=== PATIENT | female | born 1980 | race Caucasian/White ===

== ENCOUNTER 2016-09-28 13:26 | Emergency (ER) | payer OTHER ==
[~2016-09-28] VITALS: Ht 154.9 cm; Wt 54.4 kg
[2016-09-28 13:26] VITALS: BP 133/89; PULSE 78; RESP 22; TEMP 97.6; O2SAT 100
--- NOTE | 2016-09-28 13:26 | NUR ---
Patient triaged and placed in waiting room. VSS and patient appears in no acute distress at this time. Accompanied by SELF, awaiting available bed, and MD notified of need for MSE.
--- NOTE | 2016-09-28 13:55 | NUR ---
pt. placed in room 8 report received from bradford quiñonez
--- NOTE | 2016-09-28 14:00 | NUR ---
Dr. page at bedside examining the pt.
--- NOTE | 2016-09-28 14:00 | NUR ---
pt. to ER [id number] states that she does not know why she is here, "i guess vaginal bleeding" as per pt. she has abdominal pain at the moment 11/25, discomfort due to abdominal pain and vaginal bleeding. states that she might or might not be , denies SOB, denies N/V, clear speech, follows commands
[2016-09-28 14:11] LABS: BASOPHILS # (AUTO) 0.1 K/uL (0.0-0.2); BASOPHILS % (AUTO) 0.6 % (0.0-2.0); EOSINOPHILS # (AUTO) 0.1 K/uL (0.0-0.4); EOSINOPHILS % (AUTO) 0.8 % (0.0-4.0); HEMATOCRIT 40.3 % (36-48); HEMOGLOBIN 13.7 g/dL (12.0-16.0); LYMPHOCYTES # (AUTO) 3.2 K/uL (1.0-5.5); LYMPHOCYTES % (AUTO) 18.2 % (20.5-51.5); MEAN CORPUSCULAR HEMOGLOBIN 30 pg (27-31); MEAN CORPUSCULAR HGB CONC 34 % (32-36); MEAN CORPUSCULAR VOLUME 87 fL (79.0-98.0); MONOCYTES # (AUTO) 0.6 K/uL (0.0-1.0); MONOCYTES % (AUTO) 3.3 % (1.7-9.3); NEUTROPHILS # (AUTO) 13.8 K/uL (1.8-7.7); NEUTROPHILS % (AUTO) 77.1 % (40.0-70.0); PLATELET COUNT (AUTO) 343 K/uL (130-430); RED BLOOD CELL COUNT(AUTO) 4.63 MIL/uL (4.2-6.2); RED CELL DISTRIBUTION WIDTH 12.6 % (9.0-15.0); WHITE BLOOD COUNT (AUTO) 17.8 K/uL (4.8-10.8)
[2016-09-28 14:22] LABS: CALCIUM 9.1 mg/dL (8.4-11.0); CREATININE 0.71 mg/dL (0.55-1.30); POTASSIUM 3.2 mmol/L (3.5-5.1)
[2016-09-28 14:24] LABS: PROTHROMBIN TIME 10.4 SECS (9.5-12.5)
--- NOTE | 2016-09-28 14:45 | NUR ---
pt. to ultrasound via wheelchair
[2016-09-28 14:48] LABS: ALBUMIN 4.3 g/dL (3.4-4.8); TOTAL BILIRUBIN 0.7 mg/dL (0.0-1.0); TOTAL PROTEIN, SERUM 8.1 g/dL (6.4-8.3)
--- NOTE | 2016-09-28 15:06 | NUR ---
pt. back from ultrasound via wheelchair
--- NOTE | 2016-09-28 16:00 | NUR ---
pt. eloped without signing the AMA, warned of possibilities of leaving the hospital AMA, pt. appeared agitated yelling refusing to sign AMA form, Makenna ROSS witnessed.
[2016-09-28 16:07] LABS: BILIRUBIN,URINE NEGATIVE (NEGATIVE); BLOOD, URINE 3+ (NEGATIVE); CLARITY/URINE CLEAR (CLEAR); COLOR,URINE YELLOW (YELLOW); GLUCOSE,URINE NEGATIVE (NEGATIVE); KETONES,URINE 2+ (NEGATIVE); LEUKOCYTE ESTERASE ,URINE NEGATIVE (NEGATIVE); NITRITE, URINE NEGATIVE (NEGATIVE); PH,URINE 5.5 (5.0-8.0); PROTEIN URINE NEGATIVE (NEGATIVE)
[2016-09-28 16:15] LABS: BACTERIA,URINE FEW /HPF (None Seen); MUCUS,URINE None Seen /LPF (None Seen); RBC,URINE NONE SEEN /HPF (0-3); WBC,URINE 0-3 /HPF (0-3)
[2016-09-28 16:17] LABS: BARBITURATE, URINE NEGATIVE (NEG <=200); BENZODIAZEPINE, URINE POSITIVE (NEG <=150); CANNABINOID, URINE POSITIVE (NEG <=50); COCAINE, URINE NEGATIVE (NEG <=150); METHAMPHETAMINES SCREEN,URINE POSITIVE (NEG <=500); OPIATE, URINE NEGATIVE (NEG <=100); PHENCYCLIDINE SCREEN,URINE NEGATIVE (NEG <=25); UR TRICYCLIC ANTIDEPRESSANTS NEGATIVE (NEG <=300); URINE AMPHETAMINE POSITIVE (NEG <=500); URINE METHADONE NEGATIVE (NEG <=200); URINE OXYCODONE SCREEN NEGATIVE (NEG <=100); URINE PROPOXYPHENE SCREEN NEGATIVE (NEG <=300)
== END 2016-09-28 16:17 | disposition left against medical advice (07) ==
LOC: SED 13:26
DX: O20.0 Threatened abortion (principal); F15.10 Other stimulant abuse, uncomplicated; Z53.20 Procedure and treatment not carried out because of patient's decision for unspecified reasons; Z88.1 Allergy status to other antibiotic agents; Z3A.01 Less than 8 weeks gestation of pregnancy
CPT/HCPCS: 36415; 76856-TC; 80053; 80307; 81000-TC; 81025; 84702-TC; 85025; 85610-TC; 85730-TC; 86886; 86900; 86901; 99285